=== PATIENT | male | born 1985 | race African-American/Black ===

== ENCOUNTER 2018-04-04 08:29 | Outpatient (CLI) | payer OTHER ==
[2018-04-08 17:19] LABS: A/G RATIO 1.3 (0.7-1.7); ALBUMIN 4.5 g/dL (2.9-4.4); ALPHA-1-GLOBULIN 0.2 g/dL (0.0-0.4); ALPHA-2-GLOBULIN 0.4 g/dL (0.4-1.0); GAMMA GLOBULIN 1.8 g/dL (0.4-1.8); GLOBULIN, TOTAL 3.5 g/dL (2.2-3.9); M-SPIKE Not Observed g/dL (Not Observed)
== END 2018-04-04 18:00 | disposition home or self-care (01) ==
LOC: SUS 08:29 → EDSTATUS 09:00 → SUS 18:00
DX: D89.2 Hypergammaglobulinemia, unspecified (principal); R59.9 Enlarged lymph nodes, unspecified
CPT/HCPCS: 36415; 84155; 84165; 86335